=== PATIENT | male | born 1940 | race Two or more races ===

== ENCOUNTER 2020-11-19 17:44 | Inpatient (IN) | payer OTHER ==
[~2020-11-19] VITALS: Ht 177.8 cm; Wt 97.8 kg
[2020-11-19] MEDS ORDERED: ACETAMINOPHEN 325 MG TAB PO ONE ×2 (17:50→18:00)
[2020-11-19] MEDS ORDERED: ASCORBIC ACID 500 MG TAB PO ONE (18:15)
[2020-11-19] MEDS ORDERED: ZINC SULFATE 220mg CAP or TAB PO ONE (18:15)
[2020-11-19] MEDS ORDERED: methylPREDNISolone SOD SUCC 125 MG/2 ML VL IV ONE (18:15)
[2020-11-19] MEDS ORDERED: CHOLECALCIFEROL (VITD3) 2,000 UNIT CAP/TAB PO ONE (18:15)
[2020-11-19 18:34] LABS: Hemoglobin 14.4 g/dL (13.5-17.5); Mean Corpuscular Hgb Conc. 35.2 g/dL (32.0-36.0); Mean Corpuscular Volume 96.5 fL (80.0-100.0); Red Blood Cells 4.25 10^6/uL (4.5-5.90); Red Cell Distribution Width 13.9 % (11.8-14.3)
[2020-11-19 18:48] LABS: Basophils % (manual) 0 (0.0-2.0); Blast Cells 0; Eosinophils % (manual) 0 (0-7); Metamyelocytes % 0; Myelocytes % 0; Promyelocytes % 0; Reactive Lymphocytes 0
[2020-11-19 19:02] LABS: Albumin 3.2 g/dL (3.4-5.0); Anion Gap 9 (5-15); Blood Urea Nitrogen 5 mg/dL (7-18); Calcium 8.6 mg/dL (8.5-10.1); Carbon Dioxide 22 mmol/L (21-32); Chloride 99 mmol/L (98-107); Glucose 101 mg/dL (74-106); Potassium 3.6 mmol/L (3.5-5.1); Sodium 130 mmol/L (136-145)
[2020-11-19 19:04] LABS: Alanine Aminotransferase 31 U/L (16-61); Aspartate Aminotransferase 52 U/L (15-37); BUN/Creatinine Ratio 7.4; GFR African American 145 mL/min; GFR Non-African American 120 mL/min
[2020-11-19 19:14] LABS: Alkaline Phosphatase 93 U/L (45-117); Bilirubin, Total 0.3 mg/dL (0.2-1.0)
[2020-11-19 19:16] LABS: Band Neutrophils % (manual) 3; Lymphocytes % (manual) 32 (10.0-50.0); Monocytes % (manual) 14 (0-12)
[2020-11-19] MEDS ORDERED: AZITHROMYCIN 500MG/ 250ML 250 ML IV ONE (19:45)
[2020-11-19] MEDS ORDERED: REMDESIVIR PER PHARMACY 0 ML IV SCH (20:45)
[2020-11-19] MEDS ORDERED: MORPHINE SULFATE INJECTION 2 MG/ML SYRG IV PRN (20:45)
[2020-11-19] MEDS ORDERED: NITROGLYCERIN 0.4 MG SL TAB SL PRN (20:45)
[2020-11-19] MEDS ORDERED: TEMAZEPAM 15 MG CAP PO PRN (20:45)
[2020-11-19] MEDS ORDERED: ACETAMINOPHEN 500 MG TAB PO PRN (20:45)
[2020-11-19] MEDS ORDERED: ALBUTEROL SULF HFA 90MCG INH 200DOSE IN PRN (20:45)
[2020-11-19] MEDS ORDERED: cefTRIAXone 1GM/50ML D5W 50 ML IV ONE (20:45)
[2020-11-19] MEDS ORDERED: ONDANSETRON HCL 4 MG/2 ML VIAL IV PRN (20:45)
[2020-11-19 21:25] LABS: Magnesium 2.1 mg/dL (1.6-2.6)
[2020-11-19] MEDS: ENOXAPARIN SOD 40 MG/0.4 ML SYRINGE SC SCH (21:29)
[2020-11-19 21:33] LABS: CRP High Sensitivity 2.97 mg/dL (< 0.3)
[2020-11-19 22:30] VITALS: BP 110/61
[2020-11-19 22:52] VITALS: BP 110/61
[2020-11-20 05:00] VITALS: BP 118/66
[2020-11-20 05:56] LABS: Basophils # (auto) 0 10 ^3/uL (0-0.2); Eosinophils # (auto) 0 10 ^3/uL (0-0.8); Lymphocytes # (auto) 1.3 10 ^3/uL (0.4-5.4); Monocytes # (auto) 0.3 10 ^3/uL (0-1.3); Neutrophils # (auto) 1.7 10 ^3/uL (1.6-8.6); Nucleated Red Blood Cells % 0.1 %; Red Cell Distribution Width 13.9 % (11.8-14.3); White Blood Cell 3.3 10^3/uL (4.4-10.8)
[2020-11-20 05:59] LABS: Basophils % (auto) 0.4 % (0.0-2.0); Hematocrit 41.5 % (41.0-53.0); Hemoglobin 14.6 g/dL (13.5-17.5); Lymphocytes % (auto) 39.4 % (10.0-50.0); Mean Corpuscular Hemoglobin 34.4 pg (28.0-32.0); Mean Corpuscular Hgb Conc. 35.1 g/dL (32.0-36.0); Monocytes % (auto) 8.8 % (0.0-12.0); Neutrophils % (auto) 51.4 % (37.0-80.0); Red Blood Cells 4.24 10^6/uL (4.5-5.90)
[2020-11-20 06:29] LABS: Potassium 3.8 mmol/L (3.5-5.1)
[2020-11-20 06:33] LABS: Albumin 2.7 g/dL (3.4-5.0); BUN/Creatinine Ratio 9.4; Calcium 8.3 mg/dL (8.5-10.1)
[2020-11-20 06:36] LABS: Bilirubin, Total 0.2 mg/dL (0.2-1.0); Total Protein 7.5 g/dL (6.4-8.2)
[2020-11-20] MEDS ORDERED: REMDESIVIR PER PHARMACY 0 ML IV SCH (08:30)
[2020-11-20 09:00] VITALS: BP 127/69
[2020-11-20] MEDS: ENOXAPARIN SOD 40 MG/0.4 ML SYRINGE SC SCH (09:58)
[2020-11-20] MEDS ORDERED: ASCORBIC ACID 1,000 MG TAB PO SCH (10:00)
[2020-11-20] MEDS ORDERED: ZINC SULFATE 220mg CAP or TAB PO SCH (10:00)
[2020-11-20] MEDS ORDERED: PANTOPRAZOLE 40 MG TAB PO SCH (10:00)
[2020-11-20] MEDS ORDERED: DexAMETHasone SOD PHOS 10MG/1ML VIAL INJ IV SCH (10:00)
[2020-11-20] MEDS ORDERED: CHOLECALCIFEROL (VITD3) 2,000 UNIT CAP/TAB PO SCH (10:00)
[2020-11-20] MEDS ORDERED: CHOL20007 PO (12:01)
[2020-11-20] MEDS ORDERED: AZIT500T66 PO (12:01)
[2020-11-20] MEDS ORDERED: BUDE20SU (12:01)
[2020-11-20] MEDS ORDERED: FAMO20TA10 PO (12:01)
[2020-11-20] MEDS ORDERED: DEX4T PO (12:31)
[2020-11-20 13:00] VITALS: BP 115/60
[2020-11-20 14:57] VITALS: BP 115/60
[2020-11-20] MEDS ORDERED: REMDESIVIR 200 MG in NS 210ml LOADING DOSE ADULT IV ONE (15:00)
[2020-11-20] MEDS ORDERED: AZITHROMYCIN 500MG/ 250ML 250 ML IV SCH (20:00)
[2020-11-20] MEDS ORDERED: cefTRIAXone 1GM/50ML D5W 50 ML IV SCH (21:00)
[2020-11-21] MEDS ORDERED: REMDESIVIR 100mg 100 MG in SODIUM CHL 0.9% 230 ML IV SCH (15:00)
== END 2020-11-20 18:00 | disposition home or self-care (01) | DRG 177 ==
LOC: ER 17:46 → TELE 20:33 → TELE-EAST 23:00
PROVIDERS: ADMIT Nurse Practitioner; ATTEND Hospitalist
DX: U07.1 COVID-19 (principal); J12.82 Pneumonia due to coronavirus disease 2019; J96.00 Acute respiratory failure, unspecified whether with hypoxia or hypercapnia; E44.0 Moderate protein-calorie malnutrition; F17.210 Nicotine dependence, cigarettes, uncomplicated; Z83.3 Family history of diabetes mellitus; Z68.30 Body mass index [BMI] 30.0-30.9, adult
CPT/HCPCS: 36415; 71045; 80053; 82728; 83605; 83735; 83880; 84443; 84484; 85007; 85025; 85027; 85379; 86141; 87040; 87426; 93005; 94640; 96374; 99291; G0378; J0696; J1100

== ENCOUNTER 2020-11-27 15:34 | Inpatient (IN) | payer OTHER ==
[~2020-11-27] VITALS: Ht 177.8 cm; Wt 71.0 kg
[~2020-11-27 15:34] MED LIST: AZIT500T66 PO; BUDE20SU; CHOL20007 PO; DEX4T PO; FAMO20TA10 PO
[2020-11-27] MEDS ORDERED: DexAMETHasone SOD PHOS 10MG/1ML VIAL INJ IV ONE (15:45)
[2020-11-27 16:55] LABS: Basophils # (auto) 0 10 ^3/uL (0-0.2); Basophils % (auto) 0.3 % (0.0-2.0); Eosinophils # (auto) 0 10 ^3/uL (0-0.8); Eosinophils % (auto) 0.2 % (0.0-7.0); Hematocrit 42.9 % (41.0-53.0); Hemoglobin 15.3 g/dL (13.5-17.5); Lymphocytes # (auto) 1.7 10 ^3/uL (0.4-5.4); Mean Corpuscular Hemoglobin 33.6 pg (28.0-32.0); Mean Corpuscular Hgb Conc. 35.6 g/dL (32.0-36.0); Mean Corpuscular Volume 94.2 fL (80.0-100.0); Monocytes # (auto) 2.2 10 ^3/uL (0-1.3); Monocytes % (auto) 14.2 % (0.0-12.0); Neutrophils # (auto) 11.7 10 ^3/uL (1.6-8.6); Neutrophils % (auto) 74.3 % (37.0-80.0); Nucleated Red Blood Cells % 0.1 %; Red Blood Cells 4.55 10^6/uL (4.5-5.90); Red Cell Distribution Width 13.7 % (11.8-14.3); White Blood Cell 15.8 10^3/uL (4.4-10.8)
[2020-11-27 17:13] LABS: Albumin 2.7 g/dL (3.4-5.0); Anion Gap 11 (5-15); BUN/Creatinine Ratio 14.6; Blood Urea Nitrogen 12 mg/dL (7-18); Calcium 8.8 mg/dL (8.5-10.1); Carbon Dioxide 22 mmol/L (21-32); Chloride 99 mmol/L (98-107); GFR African American 117 mL/min; GFR Non-African American 97 mL/min; Glucose 114 mg/dL (74-106); Sodium 132 mmol/L (136-145)
[2020-11-27 17:22] LABS: Alanine Aminotransferase 36 U/L (16-61); Alkaline Phosphatase 94 U/L (45-117); Aspartate Aminotransferase 45 U/L (15-37); Bilirubin, Total 0.8 mg/dL (0.2-1.0); Total Protein 8.4 g/dL (6.4-8.2)
[2020-11-27 17:33] LABS: CRP High Sensitivity 12.8 mg/dL (< 0.3)
[2020-11-27] MEDS ORDERED: cefTRIAXone 1GM/50ML D5W 50 ML IV ONE (18:00)
[2020-11-27 18:17] LABS: Potassium 2.9 mmol/L (3.5-5.1)
[2020-11-27] MEDS ORDERED: POTASSIUM EFFERVESENT TAB 25 MEQ PO ONE (18:30)
[2020-11-27 21:32] LABS: Urine Bacteria NONE SEEN /hpf (None Seen); Urine Blood Negative /uL (Negative); Urine Hyaline Cast MANY /lpf (0 - 2); Urine Mucus FEW (None Seen); Urine WBC 2 /hpf (0 - 3)
[2020-11-28] MEDS ORDERED: IOHEXOL 350 MG/ML 100ML IJ ONE (00:16)
[2020-11-28] MEDS ORDERED: MORPHINE SULFATE INJECTION 2 MG/ML SYRG IV PRN (01:15)
[2020-11-28] MEDS ORDERED: NITROGLYCERIN 0.4 MG SL TAB SL PRN (01:15)
[2020-11-28] MEDS ORDERED: ONDANSETRON HCL 4 MG/2 ML VIAL IV PRN (01:15)
[2020-11-28] MEDS ORDERED: ACETAMINOPHEN 500 MG TAB PO PRN (01:15)
[2020-11-28 07:17] LABS: Basophils # (auto) 0 10 ^3/uL (0-0.2); Basophils % (auto) 0.2 % (0.0-2.0); Eosinophils # (auto) 0 10 ^3/uL (0-0.8); Eosinophils % (auto) 0.1 % (0.0-7.0); Lymphocytes # (auto) 1.5 10 ^3/uL (0.4-5.4); Lymphocytes % (auto) 15.6 % (10.0-50.0); Mean Corpuscular Hemoglobin 33.4 pg (28.0-32.0); Mean Corpuscular Hgb Conc. 34.9 g/dL (32.0-36.0); Mean Corpuscular Volume 95.7 fL (80.0-100.0); Monocytes # (auto) 0.5 10 ^3/uL (0-1.3); Monocytes % (auto) 5.1 % (0.0-12.0); Neutrophils # (auto) 7.4 10 ^3/uL (1.6-8.6); Nucleated Red Blood Cells % 0.1 %; Red Blood Cells 4.49 10^6/uL (4.5-5.90); Red Cell Distribution Width 13.9 % (11.8-14.3); White Blood Cell 9.3 10^3/uL (4.4-10.8)
[2020-11-28 07:39] LABS: Albumin 2.4 g/dL (3.4-5.0); Calcium 8.8 mg/dL (8.5-10.1); Potassium 3.5 mmol/L (3.5-5.1)
[2020-11-28 07:42] LABS: Bilirubin, Total 0.5 mg/dL (0.2-1.0); Total Protein 7.8 g/dL (6.4-8.2)
[2020-11-28] MEDS: cefTRIAXone 1GM/50ML D5W 50 ML IV SCH (08:35)
[2020-11-28] MEDS: ASCORBIC ACID 1,000 MG TAB PO SCH (09:24)
[2020-11-28] MEDS: ZINC SULFATE 220mg CAP or TAB PO SCH (09:24)
[2020-11-28] MEDS: DexAMETHasone SOD PHOS 10MG/1ML VIAL INJ IV SCH (09:24)
[2020-11-28] MEDS: CHOLECALCIFEROL (VITD3) 2,000 UNIT CAP/TAB PO SCH (09:25)
[2020-11-28 09:27] VITALS: BP 102/47
[2020-11-28] MEDS: ALBUTEROL SULF HFA 90MCG INH 200DOSE IN PRN (09:27)
[2020-11-28] MEDS: BUDESONIDE (INHALATION) 180 MCG IH IN SCH ×2 (09:27→22:00)
[2020-11-28] MEDS ORDERED: AZITHROMYCIN 500MG/ 250ML 250 ML IV SCH (10:00)
[2020-11-28] MEDS ORDERED: PANTOPRAZOLE 40 MG TAB PO SCH (10:00)
[2020-11-28] MEDS ORDERED: ENOXAPARIN SOD 40 MG/0.4 ML SYRINGE SC SCH (10:00)
[2020-11-28] MEDS ORDERED: ENOXAPARIN SOD 100 MG/1 ML SYRINGE SC SCH ×2 (10:00→17:00)
[2020-11-28] MEDS ORDERED: ZINC220C8 PO (10:59)
[2020-11-28] MEDS ORDERED: DEXA6TAB6 PO (10:59)
[2020-11-28] MEDS ORDERED: ASCO500C49 PO (10:59)
[2020-11-28] MEDS ORDERED: APIX5TAB OR ×2 (10:59→12:14)
[2020-11-28] MEDS ORDERED: CHOL20007 PO (10:59)
[2020-11-28] MEDS ORDERED: ALBUAER3 IN (10:59)
[2020-11-28] MEDS: APIXABAN 5 MG TAB PO SCH (20:40)
[2020-11-28 22:00] VITALS: BP 106/60
[2020-11-29 05:00] VITALS: BP_SYST 106; BP_DIAS 60; BP_DIAS 72
[2020-11-29 06:11] LABS: Basophils # (auto) 0 10 ^3/uL (0-0.2); Basophils % (auto) 0.1 % (0.0-2.0); Eosinophils # (auto) 0 10 ^3/uL (0-0.8); Eosinophils % (auto) 0.1 % (0.0-7.0); Hemoglobin 13.9 g/dL (13.5-17.5); Lymphocytes # (auto) 1.8 10 ^3/uL (0.4-5.4); Lymphocytes % (auto) 8.4 % (10.0-50.0); Mean Corpuscular Hemoglobin 33.1 pg (28.0-32.0); Mean Corpuscular Hgb Conc. 34.9 g/dL (32.0-36.0); Mean Corpuscular Volume 95.1 fL (80.0-100.0); Monocytes # (auto) 1.6 10 ^3/uL (0-1.3); Monocytes % (auto) 7.5 % (0.0-12.0); Neutrophils # (auto) 18.3 10 ^3/uL (1.6-8.6); Neutrophils % (auto) 83.9 % (37.0-80.0); Red Blood Cells 4.21 10^6/uL (4.5-5.90); Red Cell Distribution Width 13.9 % (11.8-14.3); White Blood Cell 21.8 10^3/uL (4.4-10.8)
[2020-11-29 06:29] LABS: Potassium 3.1 mmol/L (3.5-5.1)
[2020-11-29 06:39] LABS: Albumin 2.2 g/dL (3.4-5.0); BUN/Creatinine Ratio 21.9; Bilirubin, Total 0.4 mg/dL (0.2-1.0); Calcium 8.8 mg/dL (8.5-10.1); Total Protein 7.1 g/dL (6.4-8.2)
[2020-11-29] MEDS: BUDESONIDE (INHALATION) 180 MCG IH IN SCH (07:49)
[2020-11-29] MEDS: ALBUTEROL SULF HFA 90MCG INH 200DOSE IN PRN (07:49)
[2020-11-29 08:00] VITALS: BP 92/59
[2020-11-29] MEDS: cefTRIAXone 1GM/50ML D5W 50 ML IV SCH (08:36)
[2020-11-29 09:00] VITALS: BP 92/59
[2020-11-29] MEDS ORDERED: AZITHROMYCIN 250 MG TAB PO SCH (10:00)
[2020-11-29] MEDS: ZINC SULFATE 220mg CAP or TAB PO SCH (10:18)
[2020-11-29] MEDS: ASCORBIC ACID 1,000 MG TAB PO SCH (10:18)
[2020-11-29] MEDS: CHOLECALCIFEROL (VITD3) 2,000 UNIT CAP/TAB PO SCH (10:18)
[2020-11-29] MEDS: DexAMETHasone SOD PHOS 10MG/1ML VIAL INJ IV SCH (10:19)
[2020-11-29] MEDS: APIXABAN 5 MG TAB PO SCH (10:27)
[2020-11-29] MEDS ORDERED: SODIUM CHLORIDE 0.9% 1,000 ML IV ONE (11:30)
[2020-11-29] MEDS: POTASSIUM CHL 20MEQ/100ML 100 ML IV SCH ×2 (12:41→14:50)
[2020-11-29 13:00] VITALS: BP 102/68
[2020-11-29 13:03] LABS: Basophils # (auto) 0 10 ^3/uL (0-0.2); Basophils % (auto) 0.1 % (0.0-2.0); Eosinophils # (auto) 0 10 ^3/uL (0-0.8); Eosinophils % (auto) 0.1 % (0.0-7.0); Hematocrit 38.9 % (41.0-53.0); Hemoglobin 13.6 g/dL (13.5-17.5); Lymphocytes # (auto) 0.7 10 ^3/uL (0.4-5.4); Lymphocytes % (auto) 3.1 % (10.0-50.0); Mean Corpuscular Hemoglobin 33.6 pg (28.0-32.0); Monocytes % (auto) 4.5 % (0.0-12.0); Neutrophils # (auto) 20.3 10 ^3/uL (1.6-8.6); Neutrophils % (auto) 92.2 % (37.0-80.0); Red Blood Cells 4.05 10^6/uL (4.5-5.90); Red Cell Distribution Width 13.5 % (11.8-14.3)
[2020-11-29 15:03] VITALS: BP 102/68
[2020-11-29] MEDS ORDERED: POTASSIUM CHL 20 Meq TABLET PO ONE (16:15)
[2020-11-29 17:00] VITALS: BP 114/77
== END 2020-11-29 18:05 | disposition home health service (06) | DRG 177 ==
LOC: ER 15:34 → TELE 11-28 01:02 → TELE-EAST 11-28 15:33
PROVIDERS: ADMIT Nurse Practitioner; ATTEND Internal Medicine
DX: U07.1 COVID-19 (principal); J12.82 Pneumonia due to coronavirus disease 2019; I26.99 Other pulmonary embolism without acute cor pulmonale; J96.01 Acute respiratory failure with hypoxia; E44.0 Moderate protein-calorie malnutrition; E87.1 Hypo-osmolality and hyponatremia; D72.829 Elevated white blood cell count, unspecified; F32.9 Major depressive disorder, single episode, unspecified; E87.6 Hypokalemia; Z20.822 Contact with and (suspected) exposure to COVID-19; Z72.0 Tobacco use; Z68.22 Body mass index [BMI] 22.0-22.9, adult; Z79.01 Long term (current) use of anticoagulants
CPT/HCPCS: 36415; 36600; 71045; 71275; 80053; 81001; 82728; 82805; 83605; 83735; 83880; 84484; 85025; 85379; 86141; 87081; 87426; 93005; 94640; 96365; 96366; 96367; 96372; 96375; 96376; 99291; G0378; J0696; J1100; J3480